=== PATIENT | female | born 1970 | race Hispanic/Latino ===

== ENCOUNTER 2018-10-14 06:26 | Day surgery (SDC) | payer BC ==
[2018-10-11 13:17] LABS: Absolute Lymphocytes (CBC) 1.7 K/uL (0.7-4.9); Basophils % 0.6 % (0-1.3); Eosinophils % 1.3 % (0-4.4); Hematocrit 39.9 % (36.0-45.0); Lymphocytes % 20.6 % (15.3-44.8); MPV 8.6 fL (7.6-11.3); Monocytes % 7.8 % (3.3-12.3); RBC Red Blood Cell Count 4.28 M/uL (3.86-4.86)
[2018-10-11 13:24] LABS: Urine Appearance CLOUDY; Urine Bilirubin NEGATIVE (NEG); Urine Blood 3+ (NEG); Urine Color YELLOW; Urine Glucose NEGATIVE (NEG); Urine Protein NEGATIVE (NEG)
[2018-10-11 13:28] LABS: Urine Microscopic Reflex ORDER UMIC
[2018-10-11 13:39] LABS: Urine RBC <5 /HPF (NONE SEEN)
[2018-10-11 13:40] LABS: Urine Bacteria >50 /HPF (<20); Urine Culture Reflex Order NOT NEEDED; Urine Mucus LIGHT /HPF (NONE SEEN)
[2018-10-14 06:44] LABS: Specific Gravity 1.025 (1.005-1.030)
[2018-10-14] MEDS ORDERED: SCOPOLAMINE HYDROBROMIDE PATCH TD ONE (06:49)
[2018-10-14] MEDS ORDERED: Ringers Lactate 1,000 ML IV ONE ×3 (06:49→12:34)
[2018-10-14] MEDS ORDERED: PROPOFOL 200 MG/20 ML VIAL IV ONE (07:16)
[2018-10-14] MEDS ORDERED: FENTANYL CITR 250 MCG/5 ML ONE (07:17)
[2018-10-14] MEDS ORDERED: ROCURONIUM 50 MG/5 ML VIAL IV ONE (07:17)
[2018-10-14] MEDS ORDERED: LIDOCAINE 2% MPF 5 ML VIAL ONE (07:17)
[2018-10-14] MEDS ORDERED: MIDAZOLAM HCL 2 MG/2 ML INJ ONE (07:17)
[2018-10-14] MEDS ORDERED: DEXAMETHASONE 10 MG/ML VIAL ONE (07:17)
[2018-10-14] MEDS ORDERED: ONDANSETRON 4 MG/2 ML VIAL ONE (07:24)
[2018-10-14] MEDS: CEFAZOLIN/SWI 2gm 2 GM/20 ML SYR ONE ×2 (07:50→08:00)
[2018-10-14] MEDS ORDERED: GLYCOPYRROLATE 0.2 MG/ML SYR ONE (08:23)
[2018-10-14] MEDS ORDERED: KETOROLAC 30 MG/ML INJ ONE (10:17)
[2018-10-14] MEDS ORDERED: MEPERIDINE HCL 50 MG/ML AMP ONE (12:06)
[2018-10-14] MEDS ORDERED: PROMETHAZINE 25 MG/ML VIAL ONE (12:09)
[2018-10-14] MEDS ORDERED: METOCLOPRAMIDE 10 MG/2mL INJ ONE (12:45)
[2018-10-14] MEDS ORDERED: HYDROCODONE/APAP 5/325 MG TAB ONE (14:23)
--- NOTE | 2018-10-14 21:42 | OP ---
Date of Procedure: 10/14/2018 Surgeon: Sue Champion MD Hospital Insurance Representative: [employer]. Preoperative Diagnoses: Right lower quadrant pain, deep dyspareunia, excessive periods with history of menorrhagia and now perimenopausal bleeding. The patient with mild stress incontinence, urge inco ntinence, and uterine prolapse, stage 1. Postoperative Diagnoses: Right lower quadrant pain, deep dyspareunia, excessive periods with history of menorrhagia and now perimenopausal bleeding. The patient with mild stress incontinence, urge inc ontinence, and uterine prolapse, stage 1. Adhesions of the omentum and the sigmoid colon to the ante rior abdominal wall and a small ventral hernia in the area of her prior scar in the lower abdominal a luis at the site of her oophorectomy scar. Procedures Performed: Total laparoscopic hysterectomy, bilateral salpingectomy, left oophorectomy, e xtensive lysis of adhesions, uterosacral ligament suspension, colpopexy, cystoscopy. Anesthesia: General endotracheal. Specimens: Uterus, left ovary, left tube, and proximal right tube. Estimated Blood Loss: Minimal. Urine Output: 300. Complications: No complications. Drains: No drains. Condition: The patient's condition is stable. Findings: 1.POP-Q with point C at -4. Uterus anteflexed, enlarged, slightly deviated to the right. 2.Decreased mobility. No adnexal masses. 3.Intra-abdominally, ventral hernia in the lower anterior abdominal wall where the adhesions were pr esent above the level of the bladder. There was decreased mobility of the entire uterus. No evidenc e of any endometriosis. The right ovary was absent. The distal part of the right tube was also ila mahnaz. The proximal tube was left and this was taken as a specimen along with the uterus. 4.Both ureters were well visualized and patent at the end of the procedure. Her bladder appeared to have significantly decreased capacity as found on cystoscopy when it was distended. Description Of Procedure: After informed consent was verified, the patient was taken back to OR, sayra semaj in supine fashion on the operating table, and 2 g of Ancef were given. She had a rash to penicil manuel, but she tolerated the Ancef well. She was placed in a dorsal lithotomy position after general a nesthesia was given. Pelvic exam performed and as above. Abdomen, vulva, vagina, and perineum were prepped and draped in a sterile fashion. Sebastian was placed to drain the bladder and attached the cyst o tubing to an LR bag, emptied 300, and large VCare was fixed in place. This area was draped. A 1 cm supraumbilical incision was made with a scalpel in a semilunar fashion to top of the umbilicus . Fascia was incised, tagged on both sides. Peritoneum entered bluntly. S retractor was placed. H asson introduced and peritoneal cavity insufflated. Site of entry checked and unremarkable. Upper a bdominal surface is unremarkable as well. The patient was placed in Trendelenburg and the adhesions were seen in the anterior abdominal wall starting just below the level of the umbilicus all the way d own to the level of the bladder mostly onto the left side. So, I was able to place a 5 mm left lower quadrant port with the help of the LigaSure and sharp dissection with scissors. The omental adhesio ns were taken down. Then, the sigmoid colon was visualized. The sigmoid and the epiploica were adhe red to the anterior abdominal wall. However, this appeared to be through a fascial defect in the low er abdominal wall. Once these were dissected with push-spread technique, window was made and I was a ble to dissect this down and taken it down with the help of the LigaSure and the hernia site could be visualized. It was in the suprapubic area where I had to put my 10 mm trocar, so I decided that if the closure has to be done for the 10 mm, it would not be optimal due to the presence of the hernia a nd this could increase the port site postop herniation, so the 10 mm port was planned to be placed in the left lower quadrant. So, the 5 was extended to a 10. A 5 mm suprapubic and right lower quadran t ports were placed under direct vision and the surgery was started. An 8 mm port was placed. However, due to the difficulty of inserting the CT-1 needle through this, i t was changed to a 10 later on while suturing. Thorough inspection was done. No evidence of any endometriosis. Findings as above. LigaSure was sp more. The broad ligament was opened up between the round ligament and the infundibulopelvic ligament. The IP was isolated. Posterior peritoneum was also incised. Then, the mesosalpinx tube were remov ed, utero-ovarian ligament was taken down, round ligament was taken down anteriorly, and anterior lay er of the broad ligament was opened up and this peritoneum dissected all the way to the opposite side of the patient raising a bladder flap. Then, posteriorly, peritoneum taken down to the left uterosa cral ligament. Broad ligament was taken down and vessels were skeletonized. After doing the similar procedure, opening up the retroperitoneum on the right side, the mesosalpinx was taken down. The ro und ligament was taken down. Then, the anterior broad ligament was connected to finish the bladder f lap and posteriorly, the peritoneum was taken down all the way to the right uterosacral insertion and the broad ligament dissected to skeletonize the vessels. Once this was done, the anterior bladder f lap was visualized. The upper border of the bladder was well visualized. Vesicovaginal space was en tered with the help of the monopolar hook blade and then dissection was performed pushing down the bl adder on the anterior wall of the vagina. Then, the VCare cup was well exposed, windows were made on the medial aspects of both uterine vessels. Bipolar basket tip was used to cauterize and then the L igaSure to take the uterine artery and vein down, the anterior branch as well. Then, the cardinal li gaments were taken down first on the right side then on the left side. Circumferential colpotomy wit h a monopolar hook blade was performed and the uterus was detached and the specimen held on the VCare while I dissected the ovary on the infundibulopelvic ligament and took it down with the LigaSure. A ll the specimens were retrieved through the vagina. Nasal suction cannula was placed in place of the VCare cup for occlusion during closure. Thorough irrigation and suction of the posterior vaginal wa ll were done and the posterior vaginal wall at 7 o'clock position had to be cauterized with the help of the medium tip bipolar. There was excellent hemostasis. Then extracorporal sutures were placed. Two simple angle stitches at either ends of the vaginal cuff and 3 [id number] in the middle, a ll interrupted. Then, for the uterosacral suspension, cleaned up the anterior vaginal wall about 3 c m. Then, both ureters were visualized from the pelvic brim to the ureteric tunnel and there was no a natomical distortion. After visualizing and pulling up on the area of the attachment of the uterosac ral and after the closure of the cuff, I was able to isolate the uterosacrals and was able to plicate them with the help of [address]-1 needle. Two sutures were taken on the left side from lateral to medial avoiding the ureter and then fixating it to the posterior rectovaginal fascia and the anter ior vaginal wall. This suture was then tied in a similar fashion on the right side, went through the distal half of the uterosacral, plicated, and attached to the vaginal cuff and tied down. Next, cys toscopy was performed with a 17-Polish sheath, 30-degree lens and normal saline. Both ureteric orifi rudolph were patent and there was strong jets of urine from them probably. The entire bladder was well v isualized. No evidence of any tumors, diverticula. There was metaplasia seen in the trigonal area, but no other anatomical distortions. Bladder was drained. The vagina was cleaned up. Bulb was ila mahnaz. Sebastian was removed. We went back up and after thorough irrigation and suction were performed, the 10 mm left lower quadra nt port was closed with the help of a Thiago-Lupis closure system. A 0 Vicryl tie was used to bobo se this. A simple stitch was placed and tied down. There was excellent closure of the incision and this was left alone. Then, the trocars were all removed. Fascia at the umbilicus was closed after d esufflation with the tag sutures tied to each other at both ends and then simple 0 Vicryl stitch in t he subcutaneous tissue and 4-0 Monocryl in the umbilicus and 4-0 Vicryl interrupted in all other inci sions. Sebastian was left out. Instrument, needle, and sponge counts were done and were correct at the end of the case. The patient tolerated the procedure well. EBL was minimal. SAUD/JOSE LUIS Voice ID: [id number] Report ID: [id number]
== END 2018-10-14 15:18 | disposition home or self-care (01) ==
LOC: OR 06:26
PROVIDERS: ATTEND Obstetrics & Gynecology
PROC: 0UT14ZZ Resection of Left Ovary, Percutaneous Endoscopic Approach (ICD-10-PCS; 2018-10-14)
PROC: 0UT74ZZ Resection of Bilateral Fallopian Tubes, Percutaneous Endoscopic Approach (ICD-10-PCS; 2018-10-14)
PROC: 0USG7ZZ Reposition Vagina, Via Natural or Artificial Opening (ICD-10-PCS; 2018-10-14)
PROC: 0UT94ZZ Resection of Uterus, Percutaneous Endoscopic Approach (ICD-10-PCS; principal; 2018-10-14 07:30)
DX: N94.12 Deep dyspareunia (principal); N92.1 Excessive and frequent menstruation with irregular cycle; N39.3 Stress incontinence (female) (male); N39.41 Urge incontinence; N81.2 Incomplete uterovaginal prolapse; N88.8 Other specified noninflammatory disorders of cervix uteri; D25.9 Leiomyoma of uterus, unspecified; N83.02 Follicular cyst of left ovary; K66.0 Peritoneal adhesions (postprocedural) (postinfection); K43.9 Ventral hernia without obstruction or gangrene; Z90.721 Acquired absence of ovaries, unilateral
CPT/HCPCS: 36415; 81003; 81015; 81025; 85025; 86850; 86900; 86901; 88305; 88307; J0690; J1100; J2175; J2250; J2405; J2550; J2704; J2765; J3010

== ENCOUNTER 2019-09-06 10:46 | Observation (INO) | payer BC ==
--- OUTSIDE RECORDS SUMMARY | 2019-09-06 11:43 | XMS REPORT ---
:1970 Author Organization [facility] t Address [address] [place] [address] Care Team Providers Name Role Phone Lakesha FRANCO, Christopher Johnston Attending Clinician Problems This patient has no known problems. Allergies, Adverse Reactions, Alerts This patient has no known allergies or adverse reactions. Medications This patient has no known medications. Procedures This patient has no known procedures. Encounters Start End Encounter Admission Attending Care Care Encounter Source Date/Time Date/Time Type Type Clinicians Facility Department ID 2019-08-26 2019-08-26 [facility] [id number] 11:30:00 23:59:00 Encounter Christopher Pritchard [id number] [place] [id number] [place] [id number] Results This patient has no known results.
--- OUTSIDE RECORDS SUMMARY | 2019-09-06 11:43 | XMS REPORT | Summary of Care ---
:1970 Author Organization [facility] Address [address] [place] [address] Care Team Providers Name Role Phone Negin Primary Care Provider Reason for Visit Radiology Services (Routine) Status Reason Specialty Diagnoses / Referred By Referred To Procedures Contact Contact New Request Diagnostic Diagnoses Right hip pain Lakesha, Radiology Procedures XR HIPS 2 VW RIGHT XR HIP 1 VW RIGHT Christopher Johnston MD [address] [facility] [id number] [place] [id number] Encounter Details Date Type Department Care Team Description 08/26/2019 Hospital Encounter [facility] Marlo Crowder Arrived [facility] [address] [facility] [address] [facility] [place] [address] [id number] [place] [id number] Allergies Active Allergy Reactions Severity Noted Date Comments Morphine Other - See comments 12/27/2016 Burning sensation Penicillins Hives 05/26/2007 documented as of this encounter (statuses as of 08/27/2019) Medications Medication Sig Dispensed Refills Start Date End Date Status ciprofloxacin HCl 500 Take 1 tablet by 20 tablet 0 12/27/2016 Active mg tablet mouth 2 (two) times daily. ondansetron 4 mg Take 1 tablet by 20 tablet 0 12/27/2016 Active disintegrating tablet mouth every 4 (four) hours as needed for Nausea and Vomiting (N/V). documented as of this encounter (statuses as of 08/27/2019) Active Problems Not on filedocumented as of this encounter (statuses as of 08/27/2019) Social History Tobacco Use Types Packs/Day Years Used Date Never Assessed Sex Assigned at Date Recorded Not on file Job Start Date Occupation Industry Not on file Not on file Not on file Travel History Travel Start Travel End No recent travel history available. COVID-19 Exposure Response Date Recorded In the last month, have you been in contact with No / Unsure 08/26/2019 11:38 AM CDT someone who was confirmed or suspected to have Coronavirus / COVID-19? documented as of this encounter Last Filed Vital Signs Not on filedocumented in this encounter Plan of Treatment Health Maintenance Due Date Last Done Comments DTaP,Tdap,and Td Vaccines (1 - 1980 Tdap) PAP SMEAR 08/07/2007 08/06/2004 Breast Cancer Screening 2009 (MAMMOGRAM) COLONOSCOPY 2019 Zoster Recombinant Vaccine 2019 (SHINGRIX) (1 of 2) INFLUENZA VACCINE (Season Ended) 2019 PNEUMOCOCCAL 0-64 YEARS COMBINED Aged Out No longer eligible based on SERIES patient's age to complete this topic documented as of this encounter Procedures Procedure Name Priority Date/Time Associated Diagnosis Comme nts XR HIPS 2 VW RIGHT Routine 08/26/2019 11:51 AM Right hip pain Results for this CDT procedure are i n the results section. documented in this encounter Results XR HIPS 2 VW RIGHT (08/26/2019 11:51 AM CDT) Specimen Impressions Performed At PACS/VR/DOSE No acute bony abnormality. Mild hip osteoarthrosis. Preliminary Report Dictated by Resident: Thang Dhillon I, Raya Rey MD., have reviewed this study an d agree with the above report. Narrative Performed At This result has an attachment that is no t available. EXAM: XR HIPS 2 VW RIGHT PACS/VR/DOSE HISTORY: PAIN COMPARISON: None FINDINGS: Radiographs of the right hips demonstrate no acute fra cture or dislocation. Subchondral sclerosis and mild joint space narrowing o f the hip joint is seen. No soft tissue abnormality is identified. Procedure Note [facility], Radiant Results Inft User - 05/08/ 2020 12:30 PM CDT EXAM: XR HIPS 2 VW RIGHT HISTORY: PAIN COMPARISON: None FINDINGS: Radiographs of the right hips demonstrat e no acute fracture or dislocation. Subchondral sclerosis and mild joint spa ce narrowing of the hip joint is seen. No soft tissue abnormality is iden tified. IMPRESSION No acute bony abnormality. Mild hip osteoarthrosis. Preliminary Report Dictated by Resident: Thang Dhillon I, Raya Rey MD., have reviewed this study and agree with the above report. Performing Organization Address City/State/[place] Phone Number PACS/VR/DOSE documented in this encounter Visit Diagnoses Diagnosis Right hip pain Pain in joint, pelvic region and thigh documented in this encounter Insurance Payer Benefit Plan Subscriber ID Effective Dates Phone Address Type / Group [facility] [id number] 2018-Khari [phone] [address] P[place] - OUT OF t [id number] [place] [address] (Work) documented as of this encounter
[2019-09-06] MEDS ORDERED: HYDROMORPHONE HCL 1 MG/ML INJ IV PRN (13:35)
[2019-09-06 13:58] LABS: Absolute Lymphocytes (CBC) 2.3 K/uL (0.7-4.9); Basophils % 0.7 % (0-1.3); Hematocrit 40.3 % (36.0-45.0); Lymphocytes % 23.6 % (15.3-44.8); MPV 8.7 fL (7.6-11.3); RBC Red Blood Cell Count 4.35 M/uL (3.86-4.86)
[2019-09-06] MEDS ORDERED: POLYETHYL GLY 3350 17 GM/DOSE PO PRN (14:00)
[2019-09-06] MEDS ORDERED: ACETAMINOPHEN 325 MG TABLET PO PRN (14:00)
[2019-09-06] MEDS ORDERED: LOPERAMIDE HCL 2 MG CAPSULE PO PRN (14:00)
[2019-09-06] MEDS ORDERED: NACHLORIDE 0.45% 1,000 ML IV SCH (14:00)
[2019-09-06] MEDS ORDERED: DIPHENHYDRAMINE 25 MG TAB/CAP PO PRN (14:00)
[2019-09-06] MEDS ORDERED: ONDANSETRON 4 MG (ODT) TAB PO PRN (14:00)
[2019-09-06] MEDS ORDERED: ONDANSETRON 4 MG/2 ML VIAL IV PRN (14:00)
[2019-09-06 14:05] LABS: Protime INR 1.08
[2019-09-06 14:07] LABS: Urine Appearance CLEAR; Urine Bilirubin NEGATIVE (NEG); Urine Blood NEGATIVE (NEG); Urine Color YELLOW; Urine Glucose NEGATIVE (NEG); Urine Protein NEGATIVE (NEG); Urine Urobilinogen 0.2 mg/dL (0.2-1.0); Urine pH 6.5 (5.0-7.0)
[2019-09-06 14:32] VITALS: BMI 32.4
[2019-09-06 14:32] LABS: Urine Microscopic Reflex NO UMIC
[2019-09-06 14:41] LABS: ALT/SGPT 20 U/L (12-78); AST/SGOT 11 U/L (15-37); Albumin 3.9 g/dL (3.4-5.0); Alkaline Phosphatase 111 U/L (45-117); BUN Blood Urea Nitrogen 12 mg/dL (7-18); Bicarbonate 30 mmol/L (21-32); Bilirubin Direct 0.1 mg/dL (0-0.2); Bilirubin Total 0.4 mg/dL (0.2-1.0); Glucose Level 97 mg/dL (74-106); Magnesium 2.3 mg/dL (1.8-2.4); Phosphorus 3.7 mg/dL (2.5-4.9); Potassium 4.4 mmol/L (3.5-5.1); Protein, Total 7.8 g/dL (6.4-8.2); Sodium Level 141 mmol/L (136-145)
[2019-09-06 14:58] VITALS: O2SAT 98
[2019-09-06] MEDS ORDERED: TRAMADOL HCL 50 MG TAB PO PRN (16:31)
--- NOTE | 2019-09-06 17:35 | RAD REPORT ---
EXAM DESCRIPTION: RAD - Chest Pa And Lat (2 Views) - 09/06/2019 5:26 pm CLINICAL HISTORY: abdomen/flank pain Chest pain. COMPARISON: ABDOMEN ACUTE SERIES dated 04/20/2009 FINDINGS: The lungs are clear. The heart is normal in size. No displaced fractures. IMPRESSION: No acute or concerning finding suspected.
--- NOTE | 2019-09-06 17:41 | RAD REPORT ---
EXAM DESCRIPTION: CTAbdomen Pelvis W Contrast - 09/06/2019 4:46 pm CLINICAL HISTORY: Abdominal pain. abdomen/flank pain COMPARISON: Abdomen Pelvis W Contrast dated 02/23/2017; Abdomen Pelvis W Contrast dated 12/16/2015 TECHNIQUE: Biphasic CT imaging of the abdomen and pelvis was performed with 100 ml non-ionic IV cont rast. All CT scans are performed using dose optimization technique as appropriate and may include automated exposure control or mA/KV adjustment according to patient size. FINDINGS: The lung bases are clear.Postsurgical changes involve the stomach with a small hiatal ananya ia. The liver, spleen, pancreas, adrenal glands and kidneys are within normal limits. Cholecystectomy cli ps. No bowel obstruction, free air, free fluid or abscess. The appendix is normal. No evidence of signi ficant lymphadenopathy. No suspicious bony findings. IMPRESSION: No acute intra-abdominal or pelvic finding.
[2019-09-06] MEDS ORDERED: PARoxetine HCL 10 MG TAB PO SCH (21:00)
[2019-09-06] MEDS ORDERED: MIRTAZAPINE 15 MG TAB PO SCH (21:00)
[2019-09-06] MEDS ORDERED: HOME MED 1 EA UNK (Mirtazapine [Mirtazapine] 7.5 MG) PO SCH (21:00)
[2019-09-07 04:17] LABS: Absolute Lymphocytes (CBC) 1.7 K/uL (0.7-4.9); Basophils % 0.4 % (0-1.3); Hematocrit 38.2 % (36.0-45.0); Lymphocytes % 14.7 % (15.3-44.8); MPV 8.9 fL (7.6-11.3); RBC Red Blood Cell Count 4.17 M/uL (3.86-4.86)
[2019-09-07 04:30] LABS: BUN Blood Urea Nitrogen 11 mg/dL (7-18); Bicarbonate 31 mmol/L (21-32); Glucose Level 113 mg/dL (74-106); Magnesium 2.3 mg/dL (1.8-2.4); Potassium 4.9 mmol/L (3.5-5.1); Sodium Level 142 mmol/L (136-145)
[2019-09-07] MEDS ORDERED: ENOXAPARIN 40 MG/0.4 ML SQ SCH (09:00)
[2019-09-07 09:08] VITALS: BP 102/50; TEMP 98.2
--- NOTE | 2019-09-07 17:56 | P.DS ---
Admission Date: 09/06/19 Discharge Date: 09/07/19 Disposition: ROUTINE DISCHARGE Discharge Condition: [facility] Hospital Course: MARY JEAN-BAPTISTE HAS PAIN R LOWER ABDOMEN. HER CT SCAN ABDOMEN AND PELVIS IS NORMAL. MRI DONE AT [place] WAS NORMAL FOR SPINE. SHE NEEDS NOW TO FU WITH GI AND EDUCATION NURSE DOCTORS. SO FAR WE HAVE NOT FOUND AND ETIOLOGY FOR THIS PAIN. Vital Signs/Physical Exam: Temp Pulse Resp BP Pulse Ox 98.2 F 50 18 102/50 L 98 09/07/19 08:00 09/07/19 08:00 09/07/19 08:00 09/07/19 08:00 09/07/19 08:00 Laboratory Data at Discharge: WBC 11.3 K/uL (4.3-10.9) H D 09/07/19 03:56 Hgb 12.6 g/dL (12.0-15.0) 09/07/19 03:56 Hct 38.2 % (36.0-45.0) 09/07/19 03:56 Plt Count 319 K/uL (152-406) 09/07/19 03:56 PT 12.7 SECONDS (9.5-12.5) H 09/06/19 13:46 INR 1.08 09/06/19 13:46 APTT 37.4 SECONDS (24.3-36.9) H 09/06/19 13:46 Sodium 142 mmol/L (136-145) 09/07/19 03:56 Potassium 4.9 mmol/L (3.5-5.1) 09/07/19 03:56 BUN 11 mg/dL (7-18) 09/07/19 03:56 Creatinine 0.62 mg/dL (0.55-1.3) 09/07/19 03:56 Glucose 113 mg/dL (74-106) H 09/07/19 03:56 Phosphorus 3.7 mg/dL (2.5-4.9) 09/06/19 13:46 Magnesium 2.3 mg/dL (1.8-2.4) 09/07/19 03:56 Total Bilirubin 0.4 mg/dL (0.2-1.0) 09/06/19 13:46 AST 11 U/L (15-37) L 09/06/19 13:46 ALT 20 U/L (12-78) 09/06/19 13:46 Alkaline Phosphatase 111 U/L (45-117) 09/06/19 13:46 Home Medications: Gabapentin 100 mg PO TID 09/06/19 Mirtazapine 7.5 mg PO BEDTIME 09/06/19 PARoxetine HCL [Paxil*] 1 tab PO BEDTIME 09/06/19 Patient Discharge Instructions: SEE DR. 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 Followup: Toribio Kam MD [Primary Care Provider] - If your Symptoms Worsen ( ) Ramone Sales MD [ASSOCIATE-ACTIVE - CAN ADMIT] - 1 Week ( cigarette making examiner- call to schedule an appointment )
== END 2019-09-07 09:25 | disposition home or self-care (01) ==
LOC: 4TH 11:11
PROVIDERS: ADMIT Internal Medicine; ATTEND Internal Medicine
DX: R10.9 Unspecified abdominal pain (principal); F41.9 Anxiety disorder, unspecified; R53.83 Other fatigue
CPT/HCPCS: 87088; 85025 ×2; 87086; 80048 ×2; 36415; 83735 ×2; 84100; 85610; 80076; 85730; 84443; 81003; 82607; 82306; 74177; 71046; Q9967; G0379; J1170; J2405; G0378 ×3; J1650

== ENCOUNTER 2024-02-01 15:04 | Observation (INO) | payer OTHER ==
--- OUTSIDE RECORDS SUMMARY | 2024-02-01 15:08 | XMS REPORT | Continuity of Care Document ---
Author Name Unknown Address [address] [facility] [address] [place] [address] [facility] thconnect Address [address] [facility] [place] [address] Care Team Providers Care Street Supervisor Name Role Phone JORGE ALBERTO KANG Primary Care Physician Unavailprema bliss [email or web address] Attending Clinician UnavailDR JORGE ALBERTO Belcher Attending Clinician Unavailprema bliss [phone] Attending Clinician Unavailable [id number] Attending Clinician Unavailable DR DANNY KRAUS Attending Clinician Unavailable [id number] Attending Clinician Unavailable ULYSSES EDMONDS Attending Clinician UnavailRobert Mcgrath Attending Clinician Unavailable Robert Junior Attending Clinician Unavailable SHREE HANSON Attending Clinician UnavailShree Swanson MD Attending Clinician [email or web address]_S Admitting Clinician UnavailDR JORGE ALBERTO Belcher Admitting Clinician UnavailDR DANNY Duff Admitting Clinician Unavailable Robert Junior Admitting Clinician Unavailable SHREE HANSON Admitting Clinician Unavailab tarango Payers Payer Name Policy Type Policy Number Effective Date Expirati on Date Source 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 SHIELD - OP [id number] 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 SHIELD - OP [id number] [facility] [id number] 2018 00:00:00 Allergies, Adverse Reactions, Alerts Allergy Name Allergy Type Status Severity Reaction(s) Onset Date Inactive Date Treating Clinician Comments Source MORPHINE DRUG INGREDI Active Other-Cmnt 12-27 00:00: 00 [facility] PENICILL INS Drug Class Active Hives 05-26 00:00: 00 [facility] penicill in Drug Active 72018 [facility] morphine Drug Active Burning [facility] penicill in Drug Active 74860 [facility] morphine Drug Active Burning [facility] penicill in Drug Active 48705 [facility] morphine Drug Active Burning [facility] penicill in Drug Active 00299 [facility] morphine Drug Active Burning [facility] penicill in Drug Active 44071 [facility] morphine Drug Active Burning [facility] penicill in Drug Active 20863 [facility] morphine Drug Active Burning [facility] penicill in Drug Active 19590 [facility] morphine Drug Active Burning [facility] No Known Drug Allergie s MA Active UNKNOWN [facility] Vital Signs Vital Name Observation Time Observation Value Comments S ource Height/Length Measured 2021-05-07 12:51:02 160 cm Weight Dosing 2021-05-07 12:51:02 82.37 kg Height/Length Measured 2020-01-30 14:48:11 Weight Dosing 2020-01-30 14:48:11 Encounters Start Date/Time End Date/Time Encounter Type Admission Type Attending Clinicians Care Facility Care Department Encounter ID Source 2021-09-12 09:01:29 Outpatient ELCAMPO ELCAMPO [id number] [facility] 2023-02-14 00:00:00 2023-02-14 00:00:00 Outpatient GC_[email or web address] diyala_S PRIV PRIV [id number] [facility] 2023-02-13 00:00:00 2023-02-13 00:00:00 Outpatient GC_GCBZW_Ka diyala_S PRIV PRIV [id number] [facility] 2021-09-12 09:37:00 2021-09-12 12:10:00 Outpatient JORGE ALBERTO JUDGE [id number] [facility] [id number] [facility] 2021-09-12 11:03:00 2021-09-12 11:03:00 Outpatient JORGE ALBERTO MARC [id number] [facility] [id number] [facility] 2021-09-12 09:07:00 2021-09-12 09:07:00 Outpatient N DANNY KRAUS [id number] [facility] [id number] [facility] 2020-04-17 10:00:00 2020-04-17 10:00:00 Outpatient R [facility] [id number] [facility] 2020-04-17 10:00:00 2020-04-17 10:00:00 Outpatient R ULYSSES EDMONDS [facility] [id number] [facility] 2020-01-30 13:54:00 2020-01-30 21:29:00 Outpatient 3 Robert Junior Mark [facility] [id number] [facility] 2020-01-30 13:54:00 2020-01-30 13:54:00 Outpatient 3 Robert Junior Mark [facility] [id number] [facility] 2019-08-26 11:38:23 2019-08-26 23:59:00 Outpatient R SHREE HANSON [facility] [id number] [facility] 2019-08-26 11:30:00 2019-08-26 23:59:00 Hospital Encounter Shree Hanson [facility] [id number]
[2024-02-01 15:23] VITALS: BMI 36.2
[2024-02-01] MEDS ORDERED: LOPERAMIDE HCL 2 MG CAPSULE PO PRN (16:05)
[2024-02-01] MEDS ORDERED: POLYETHYL GLY 3350 17 GM/DOSE PO PRN (16:06)
[2024-02-01] MEDS ORDERED: ONDANSETRON 4 MG/2 ML VIAL IV PRN (16:06)
[2024-02-01] MEDS ORDERED: HYDROMORPHONE HCL 1 MG/ML INJ IV PRN (16:09)
[2024-02-01 17:00] LABS: Absolute Eosinophils 0.1 K/uL (0-0.5); Absolute Lymphocytes (CBC) 1.8 K/uL (0.7-4.9); Absolute Monocytes 0.8 K/uL (0.1-1.3); Absolute Neutrophil 6.2 K/uL (1.8-8.0); Basophils % 0.4 % (0-1.3); Eosinophils % 1.4 % (0-4.4); Hematocrit 40.9 % (36.0-45.0); Hemoglobin 13.7 g/dL (12.0-15.0); Lymphocytes % 19.7 % (15.3-44.8); MCHC 33.4 g/dL (32.0-36.0); MPV 8.2 fL (7.6-11.3); Monocytes % 8.5 % (3.3-12.3); Nucleated Red Blood Cells % 0.1 % (0-0); Platelets 300 thou/uL (152-406)
[2024-02-01] MEDS: NACHLORIDE 0.45% 1,000 ML IV SCH (17:07)
[2024-02-01 17:09] LABS: PT Prothrombin Time 11.9 SECONDS (9.4-12.5); PTT, Activated Partial Thromb 43.5 SECONDS (24.3-36.9); Protime INR 1.06
[2024-02-01] MEDS: METRONIDAZOLE 500mg IVPB 500 MG/100 ML BAG IV SCH (17:12)
[2024-02-01] MEDS: Ciprofloxacin 200mg IV 400 MG/200 ML IV.SOLN. IV SCH (18:06)
[2024-02-01 18:14] LABS: ALT/SGPT 22 U/L (13-56); AST/SGOT 14 U/L (15-37); Albumin 3.9 g/dL (3.4-5.0); Albumin/Globulin Ratio 1.1 (1.1-1.8); Alkaline Phosphatase 90 U/L (45-117); Anion Gap 6.1 mEq/L (5.0-15.0); BUN Blood Urea Nitrogen 16 mg/dL (7-18); Bicarbonate 28 mEq/L (21-32); Bilirubin Direct < 0.2 mg/dL (0-0.2); Bilirubin Indirect, Calculated 0.2 mg/dL (0.2-0.8); Bilirubin Total 0.4 mg/dL (0.2-1.0); Globulin 3.4 g/dL (2.3-3.5); Glomerular Filtration Rate 99 ml/min (=/>90); Glucose Level 75 mg/dL (74-106); Magnesium 2.2 mg/dL (1.6-2.4); Phosphorus 3.2 mg/dL (2.5-4.9); Potassium 4.1 mEq/L (3.5-5.1); Protein, Total 7.3 g/dL (6.4-8.2); Sodium Level 141 mEq/L (136-145)
[2024-02-01 18:27] LABS: Specific Gravity < 1.005 (1.005-1.030); Urine Bilirubin NEGATIVE (Negative); Urine Blood Negative (Negative); Urine Clarity Clear (Clear); Urine Color Colorless (Yellow); Urine Glucose NEGATIVE (Negative); Urine Ketones NEGATIVE (Negative); Urine Microscopic Reflex YN NO UMIC; Urine Nitrite NEGATIVE (Negative); Urine Protein NEGATIVE (Negative); Urine Urobilinogen Normal (Normal); Urine pH 6.5 (5.0-7.0)
[2024-02-01 19:19] LABS: MA/CREAT RATIO ND (< 30.0); UR CREAT < 18.0 mg/dL (20-320); UR MICROALBUMIN < 0.5 mg/dL (< 1.9)
--- NOTE | 2024-02-01 21:06 | RAD REPORT ---
EXAMINATION: Abdomen Pelvis Wo Contrast CLINICAL INDICATION: Female, 53 years old. LLQ abd pain, L rib pain TECHNIQUE: CT abdomen and pelvis was performed, without IV contrast, as per department protocol. Axia l, sagittal and coronal reconstructions were obtained. One or more of the following dose reduction techniques were used: Automated exposure control, adjustment of the mA and kV according to the patien t size, and iterative reconstruction. Unless otherwise specified, incidental findings do not require dedicated imaging follow-up. COMPARISON: 09/06/2019 FINDINGS: The lack of intravenous contrast limits the sensitivity of this exam for evaluation of solid visceral organs, vascular structures, and retroperitoneum. LOWER CHEST: The visualized lung bases are clear. LIVER: Normal in size and contour. No focal lesion. BILIARY SYSTEM: Status post cholecystectomy. SPLEEN: Normal size. No focal lesion. PANCREAS: No mass, ductal dilation, or rina-pancreatic fluid. ADRENALS: Normal; no mass. KIDNEYS AND URETERS: Normal size and contour. No hydronephrosis. URINARY BLADDER: Normal contour. GASTROINTESTINAL TRACT: Sequelae of gastric bypass. No evidence of bowel obstruction, significant sameera e fluid, free air or abscess. APPENDIX: Normal appendix. LYMPH NODES: No lymphadenopathy. MUSCULOSKELETAL: Mildly displaced lateral left 10th rib fracture. ADDITIONAL FINDINGS: None. IMPRESSION: Mildly displaced left lateral 10th rib fracture. No acute intra-abdominal process, within limits of absence of IV contrast.
[2024-02-01 21:12] VITALS: O2SAT 97
[2024-02-01] MEDS: ACETAMINOPHEN 325 MG TABLET PO PRN (21:40)
[2024-02-01] MEDS: DIPHENHYDRAMINE 25 MG TAB/CAP PO PRN (21:43)
[2024-02-02 09:12] VITALS: BP 129/66; TEMP 97
[2024-02-02] MEDS: ENOXAPARIN 40 MG/0.4 ML SQ SCH (09:41)
--- NOTE | 2024-02-02 12:45 | P.DS ---
Admission Date: 02/01/24 Discharge Date: 02/02/24 Disposition: ROUTINE DISCHARGE Discharge Condition: [facility] Hospital Course: JENNYFER HAS L SIDE RIB PAIN. LATER SHE SAYS SHE DID FALL FEEDING THE HORSE AND LIFTING 50 LB BAG. SHE HAS A BROKE RIB L SIDE AND IS STABLE TO GO HOME. SHE WILL NOT LIFT ANY WEIGHT MORE THAN 10 LBS. Vital Signs/Physical Exam: Temp Pulse Resp BP Pulse Ox 97 F 63 16 129/66 100 02/02/24 08:00 02/02/24 08:00 02/02/24 08:00 02/02/24 08:00 02/02/24 08:00 Laboratory Data at Discharge: WBC 8.90 thou/uL (4.3-10.9) 02/01/24 16:45 Hgb 13.7 g/dL (12.0-15.0) 02/01/24 16:45 Hct 40.9 % (36.0-45.0) 02/01/24 16:45 Plt Count 300 thou/uL (152-406) 02/01/24 16:45 PT 11.9 SECONDS (9.4-12.5) 02/01/24 16:45 INR 1.06 02/01/24 16:45 APTT Cancelled 02/01/24 Unknown Sodium 141 mEq/L (136-145) 02/01/24 16:45 Potassium 4.1 mEq/L (3.5-5.1) 02/01/24 16:45 BUN 16 mg/dL (7-18) 02/01/24 16:45 Creatinine 0.72 mg/dL (0.55-1.02) 02/01/24 16:45 Glucose 75 mg/dL (74-106) 02/01/24 16:45 Phosphorus 3.2 mg/dL (2.5-4.9) 02/01/24 16:45 Magnesium 2.2 mg/dL (1.6-2.4) 02/01/24 16:45 Total Bilirubin 0.4 mg/dL (0.2-1.0) 02/01/24 16:45 AST 14 U/L (15-37) L 02/01/24 16:45 ALT 22 U/L (13-56) 02/01/24 16:45 Alkaline Phosphatase 90 U/L (45-117) 02/01/24 16:45 Home Medications: NK [No Home Meds] 02/01/24 Followup: Toribio Kam MD [Primary Care Provider] - 1-2 Weeks
== END 2024-02-02 10:21 | disposition home or self-care (01) ==
LOC: 2ND 15:04
PROVIDERS: ADMIT Internal Medicine; ATTEND Internal Medicine
DX: S22.32XA Fracture of one rib, left side, initial encounter for closed fracture (principal); R10.32 Left lower quadrant pain; K57.92 Diverticulitis of intestine, part unspecified, without perforation or abscess without bleeding; F41.9 Anxiety disorder, unspecified; W18.30XA Fall on same level, unspecified, initial encounter; Y93.89 Activity, other specified; Y92.89 Other specified places as the place of occurrence of the external cause
CPT/HCPCS: 85025; 80048; 36415; 83735; 84100; 85610; 80076; 85730; 82652; 84443; 81003; 83036; 82570; 82607; 82043; 74176; J1650; J0744 ×2; G0378; G0379; J1170

== ENCOUNTER 2024-12-01 10:26 | Observation (INO) | payer OTHER ==
--- OUTSIDE RECORDS SUMMARY | 2024-12-01 10:29 | XMS REPORT | Continuity of Care Document ---
Author Name Unknown Address [address] [place] [address] [facility] ID Address [address] [place] [address] Care Team Providers Care Slope Tender Name Role Phone JORGE ALBERTO KANG Primary Care Physician UnavailDR JORGE ALBERTO Belcher Attending Clinician Unavaila izaiah [phone] Attending Clinician Unavailable [id number] Attending Clinician Unavailable DR DANNY KRAUS Attending Clinician Unavailable [phone] Attending Clinician Unavailable ULYSSES EDMONDS Attending Clinician UnavailRobert Mcgrath Attending Clinician Unavailable Robert Junior Attending Clinician Unavailable SHREE HANSON Attending Clinician UnavailShree Swanson MD Attending Clinician DR JORGE ALBERTO KANG Admitting Clinician UnavailDR DANNY Duff Admitting Clinician Unavailable Robert Junior Admitting Clinician Unavailable SHREE HANSON Admitting Clinician Unavailab tarango Payers Payer Name Policy Type Policy Number Effective Date Expirati on Date Source 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 - OP [id number] 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 SHIELD - OP [id number] [facility] [id number] 2018 00:00:00 Allergies, Adverse Reactions, Alerts Allergy Name Allergy Type Status Severity Reaction(s) Onset Date Inactive Date Treating Clinician Comments Source MORPHINE DRUG INGREDI Active Other-Cmnt 2017-0 9-09 00:00: 00 [facility] PENICILL INS Drug Class Active Hives 2008-0 2-06 00:00: 00 [facility] penicill in Drug Active 10417 [facility] morphine Drug Active [facility] penicill in Drug Active 35457 [facility] morphine Drug Active [facility] penicill in Drug Active 71795 [facility] morphine Drug Active [facility] penicill in Drug Active 59737 [facility] morphine Drug Active [facility] penicill in Drug Active 34715 [facility] morphine Drug Active [facility] penicill in Drug Active 14913 [facility] morphine Drug Active [facility] penicill in Drug Active 06987 [facility] morphine Drug Active [facility] No Known Drug Allergie s MA Active UNKNOWN [facility] Vital Signs Vital Name Observation Time Observation Value Comments S ource Height/Length Measured 2021-05-07 12:51:02 160 cm Weight Dosing 2021-05-07 12:51:02 82.37 kg Height/Length Measured 2020-01-30 14:48:11 Weight Dosing 2020-01-30 14:48:11 Encounters Start Date/Time End Date/Time Encounter Type Admission Type Attending [facility] Facility Care Department Encounter ID Source 2021-09-12 09:01:29 [id number] [facility] 2021-09-12 09:37:00 2021-09-12 12:10:00 Outpatient JORGE ALBERTO JUDGE [id number] [facility] [id number] 2021-09-12 11:03:00 2021-09-12 11:03:00 Outpatient JORGE ALBERTO MARC [id number] [facility] [id number] [facility] 2021-09-12 09:07:00 2021-09-12 09:07:00 Outpatient DANNY FLOREZ [id number] [facility] [id number] [facility] 2020-04-17 10:00:00 2020-04-17 10:00:00 Outpatient R [facility] [id number] [facility] 2020-04-17 10:00:00 2020-04-17 10:00:00 Outpatient R ULYSSES EDMONDS [facility] [id number] [facility] 2020-01-30 13:54:00 2020-01-30 21:29:00 Outpatient 3 Robert Junior Mark [facility] [id number] [facility] 2020-01-30 13:54:00 2020-01-30 13:54:00 Outpatient 3 Robert Junior Mark [facility] [id number] [facility] 2019-08-26 11:38:23 2019-08-26 23:59:00 Outpatient R SHREE HANSON [facility] [id number] [facility] 2019-08-26 11:30:00 2019-08-26 23:59:00 Hospital Encounter Shree Hanson [facility] [id number]
--- NOTE | 2024-12-01 10:56 | RAD REPORT ---
EXAM: CT brain without contrast HISTORY: Numbness . COMPARISON: None TECHNIQUE: Multiple contiguous axial images were obtained and a CT of the brain without contrast. Sagittal and coronal reformats were performed. Automated exposure control, adjustment of the mA and/or kV according to patient size, and/or itera tive reconstruction. Unless otherwise specified, incidental findings do not require dedicated imaging follow-u FINDINGS: An intracranial bleed is not seen Ventricles are normal caliber No extra-axial fluid collection noted No significant hypodensity within the brain No fluid within the visualized sinuses or mastoids noted. IMPRESSION: No acute intracranial abnormality noted. If the patient's symptoms persist MRI of the brain would be recommended. from the emergency room was notified at 10:46 AM December 01, 2024
[2024-12-01 10:59] LABS: Absolute Lymphocytes (CBC) 1.8 K/uL (0.7-4.9); Hematocrit 41.2 % (36.0-45.0); Hemoglobin 13.4 g/dL (12.0-15.0); MCH 29.4 pg (27.0-35.0); MCHC 32.6 g/dL (32.0-36.0); MCV 90.3 fL (80-100); MPV 8.3 fL (7.6-11.3); Nucleated RBC Absolute Count 0.0 (0-0); Nucleated Red Blood Cells % 0.0 % (0-0); RBC Red Blood Cell Count 4.56 M/uL (3.86-4.86); White Blood Count 6.00 thou/uL (4.3-10.9)
--- NOTE | 2024-12-01 11:07 | RAD REPORT ---
EXAMINATION: Neck Angio CLINICAL INDICATION: Numbness TECHNIQUE: Axial CT images were obtained from the aortic arch to the skull base after intravenous adm inistration of 100 cc Isovue-370 utilizing angiographic protocol. Multiplanar reformats, as well as 3D post-processing (maximum intensity projection images, volume rendered images and/or shaded surface rendered images) were generated and reviewed. One or more of the following dose reduction techniques were used: Automated exposure control, adjustment of the mA and/or kV according to patient size, and/or iterative reconstruction. Unless otherwise specified, incidental findings do not require dedicated imaging follow-up. COMPARISON: No prior exam. FINDINGS: The visualized aortic arch and great vessels do not demonstrate a significant abnormality Mild plaque is present within the common, internal and external carotid arteries bilaterally Hypoplastic right vertebral artery. No significant stenosis noted. A dissection is not seen. Methods for NASCET criteria: Mild stenosis, 0% to 49%; Moderate stenosis 50% to 69%; Severe stenosis, 70% to 99% IMPRESSION: No acute vascular abnormality displayed
--- NOTE | 2024-12-01 11:07 | RAD REPORT ---
EXAMINATION: CTA HEAD CLINICAL INDICATION: Numbness TECHNIQUE: Axial CT images were obtained through the head after 100 cc Isovue-370 intravenous contras t utilizing angiographic protocol with 3D post-processing (maximum intensity projection images, volume rendered images and/or shaded surface rendered images). One or more of the following dose red uction techniques were used: Automated exposure control, adjustment of the mA and/or kV according to patient size, and/or iterative reconstruction. Unless otherwise specified, incidental findings do not require dedicated imaging follow-up. COMPARISON: None FINDINGS: origin right posterior cerebral artery Distal internal carotid, basilar, anterior cerebral, middle cerebral and posterior cerebral arteries do not demonstrate a significant stenosis An aneurysm not noted. No large vessel occlusion IMPRESSION: No acute vascular abnormality displayed
[2024-12-01 11:09] LABS: PT Prothrombin Time 12.8 SECONDS (10-13.0); PTT, Activated Partial Thromb 39.5 SECONDS (27.2-37.4); Protime INR 1.14
[2024-12-01 11:21] LABS: ALT/SGPT 24 U/L (13-56); AST/SGOT 14 U/L (15-37); Albumin 3.8 g/dL (3.4-5.0); Albumin/Globulin Ratio 1.1 (1.1-1.8); Alkaline Phosphatase 96 U/L (45-117); Anion Gap 7.8 mEq/L (5.0-15.0); BUN Blood Urea Nitrogen 13 mg/dL (7-18); Bilirubin Indirect, Calculated 0.3 mg/dL (0.2-0.8); Globulin 3.5 g/dL (2.3-3.5); Glucose Level 91 mg/dL (74-106); Magnesium 2.2 mg/dL (1.6-2.4); Potassium 3.8 mEq/L (3.5-5.1)
[2024-12-01 11:22] LABS: Troponin High Sensitivity < 3.0 pg/mL (<58.9)
--- NOTE | 2024-12-01 11:37 | EDPHYS ---
Physician Documentation [facility] Name: Crystal England Age: 54 yrs Sex: Female : 1970 Arrival Date: 12/01/2024 Time: 10:26 Bed 14 Private MD: ED Physician Kory Townsend HPI: 12/01 10:39 This 54 yrs old Female presents to ER via Unassigned with complaints of S/S of ms3 Possible Stroke. 10:39 54-year-old female with no past medical history presents to the emergency department ms3 from Dr. Kam's office for dysarthria and altered mental status. Patient states at 10 PM last night she developed a right-sided heaviness and numbness. Patient states this morning she developed a headache and neck pain. Patient states while at Dr. Kam's office she developed dysarthria with difficulty spelling. Patient states her symptoms have since resolved. Patient is complaining of posterior headache that she rates a 10/10 and states pressing on the posterior portion of her head improves her headache.. 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 - Infectious Disease History:: Denies. - Social history:: Smoking status: Patient denies any tobacco usage or history of. ROS: 10:39 Constitutional: Negative for fever, and chills. Cardiovascular: Negative for chest ms3 pain, and palpitations. Respiratory: Negative for shortness of breath, cough, wheezing, and pleuritic chest pain, Abdomen/GI: Negative for abdominal pain, nausea, vomiting, diarrhea, and constipation, MS/Extremity: Negative for injury and deformity, Skin: Negative for injury, rash, and discoloration, 10:39 Neuro: Positive for Dysarthria, Right sided heaviness- resolved, Exam: 10:39 Constitutional: This is a well developed, well nourished patient who is awake, alert, ms3 and in no acute distress. Head/Face: Normocephalic, atraumatic. Cardiovascular: Regular rate and rhythm with a normal S1 and S2. No gallops, murmurs, or rubs. Normal PMI, no JVD. No pulse deficits. Respiratory: Lungs have equal breath sounds bilaterally, clear to auscultation and percussion. No rales, rhonchi or wheezes noted. No increased work of breathing, no retractions or nasal flaring. Abdomen/GI: Soft, non-tender, with normal bowel sounds. No distension or tympany. No guarding or rebound. No evidence of tenderness throughout. Skin: Warm, dry with normal turgor. Normal color with no rashes, no lesions, and no evidence of cellulitis. MS/ Extremity: Pulses equal, no cyanosis. Neurovascular intact. Full, normal range of motion. 10:39 Neuro: Orientation: is normal, to person, place, time \T\ situation. Mentation: is normal, Memory: is normal, Cranial nerves: CN I not tested, CN II- XII are normal as tested, Cerebellar function: is grossly normal, normal finger to nose testing, Motor: is normal, Sensation: is normal, no obvious gross deficits, 10:47 Radiologist reports: Spoke to Dr Oh. CT Head negative ms3 11:57 ECG was reviewed by the Attending Physician. ms3 Vital Signs: 10:30 BP 182 / 94; Pulse 77; Resp 16; Temp 98.2; Pulse Ox 100% on R/A; Weight 90.72 kg; me1 Height 5 ft. 2 in. ; Pain 10/10; 11:00 BP 148 / 80; Pulse 61; Resp 18; Pulse Ox 100% ; me1 11:30 BP 125 / 89; Pulse 51; Resp 16; Pulse Ox 100% ; me1 12:00 BP 139 / 89; Pulse 50; Resp 16; Pulse Ox 98% ; me1 13:00 BP 136 / 83; Pulse 58; Resp 16; Pulse Ox 100% ; me1 10:30 Body Mass Index 36.58 (90.72 kg, 157.48 cm) me1 10:30 Pain Scale: Adult me1 NIH Stroke Scale Scores: 10:30 NIHSS Score: 0 ss 10:36 NIHSS Score: 0 me1 MDM: 10:30 Medical Screening Exam initiated ms3 10:39 Differential diagnosis: CVA, TIA, metabolic disorder. ms3 11:37 TNKase (Tenecteplase) Screening: Contraindications: Patient reports onset of signs and ms3 symptoms of stroke greater than 6 hours ago: Yes. Data reviewed: vital signs, nurses notes, lab test result(s), EKG, radiologic studies, and as a result, I will admit patient. Consideration of Admission/Observation Patient was admitted/placed on observation. Management of patient was discussed with the following: Hospitalist: Dr Kam- Would like admission orders he sent placed. I considered the following discharge prescriptions or medication management in the emergency department Medications were administered in the Emergency Department. See MAR. Independent interpretation of the following test(s) in the Emergency Department EKG: See my EKG interpretation above CT Scan: My interpretation is CT Head without contrast images reviewed by me do not reveal ICH. Counseling: I had a detailed discussion with the patient and/or guardian regarding the historical points, exam findings, and any diagnostic results supporting the discharge/admit diagnosis, lab results, radiology results, the need for further work-up and treatment in the hospital. ED course: Discussed imaging and labs with patient. Patient agrees with plan for observation. Case discussed with Dr. Kam. 12/01 10:39 Order name: Basic Metabolic Panel; Complete Time: 11: ms3 12/01 10:39 Order name: CBC with Diff; Complete Time: : ms3 12/01 10:39 Order name: Hepatic Function; Complete Time: : ms3 12/01 10:39 Order name: High Sensitivity Troponin; Complete Time: 11: ms3 12/01 10:39 Order name: Magnesium; Complete Time: 11: ms3 12/01 10:39 Order name: Protime (+inr); Complete Time: : ms3 12/01 10:39 Order name: Ptt, Activated; Complete Time: : ms3 12/01 11:04 Order name: CREATININE WHOLE BLOOD; Complete Time: : EDMS 12/01 11:20 Order name: Glucose, Ancillary Testing; Complete Time: 11: EDMS 12/01 11:47 Order name: Creatine Phosphokinase EDMS 12/01 11:47 Order name: Creatine Phosphokinase EDNV 12/01 11:47 Order name: Lipid Profile EDMS 12/01 11:47 Order name: Lipid Profile EDMS 12/01 11:56 Order name: Thyroid Stimulating Hormone EDMS 12/01 11:56 Order name: Vitamin B12 Level EDMS 12/01 11:56 Order name: Hemoglobin A1c EDMS 12/01 11:56 Order name: Urine Microalbumin/Creatinine EDMS 12/01 11:56 Order name: Vitamin D, 25 ([place]), TOTAL EDMS 12/01 12:42 Order name: LDL, Direct EDMS 12/01 10:39 Order name: CT Head Angio; Complete Time: 11:17 ms3 12/01 10:39 Order name: CT Neck Angio; Complete Time: 11:17 ms3 12/01 10:39 Order name: CT Stroke Brain w/o Contrast; Complete Time: 11:17 ms3 12/01 11:56 Order name: Brain W/Wo Cont EDMS 12/01 12:11 Order name: RAD EDMS 12/01 11:47 Order name: IRF Screen EDMS 12/01 10:39 Order name: Accucheck; Complete Time: 11:10 ms3 12/01 10:39 Order name: Cardiac monitoring; Complete Time: 11:07 ms3 12/01 10:39 Order name: EKG - Nurse/Tech; Complete Time: 11:07 ms3 12/01 10:39 Order name: IV Saline Lock; Complete Time: 10:44 ms3 12/01 10:39 Order name: Labs collected and sent; Complete Time: 11:07 ms3 12/01 10:39 Order name: NPO; Complete Time: 11:07 ms3 12/01 10:39 Order name: O2 Per Protocol; Complete Time: 11:07 ms3 12/01 10:39 Order name: O2 Sat Monitoring; Complete Time: 11:07 ms3 12/01 10:39 Order name: Stroke Swallow Screen; Complete Time: 11:07 ms3 EC:57 Rate is 57 beats/min. Rhythm is regular. QRS [place] is Normal. [place] interval is normal. QRS ms3 interval is normal. Clinical impression: Sinus bradycardia. Interpreted by me. Reviewed by me. Administered Medications: 11:33 Not Given (bp 148/80, hr 61. Cancel per verbal order from Dr Casey): [id number] mg IV me1 at calculated rate once 12:13 Drug: Ativan IVP 1 mg IVP once Route: IVP; Site: right antecubital; me1 13:20 Follow up: Response: No adverse reaction; Anxiety decreased me1 Disposition Summary: 12/01/24 11:37 Hospitalization Ordered Notes: Hospitalization Status: Observation ms3 Provider: Toribio Kam ms3 Location: Telemetry/MedSurg (observation) ms3 Condition: Stable ms3 Problem: new ms3 Symptoms: are unchanged ms3 Bed/Room Type: Standard ms3 Room Assignment: 212(12/01/24 11:49) bc6 Diagnosis - Transient cerebral ischemic attack, unspecified ms3 - Dysarthria ms3 - Essential (primary) hypertension ms3 Forms: - Medication Reconciliation Form ms3 - SBAR form ms3 - Leadership Thank You Letter ms3 NIH Stroke Scale - NIH Stroke Score Date: 12/01/2024 Time: 10:30 Total Score = 0 10. Dysarthria (speech clarity - read or repeat words) - 0(Normal) 11. Extinction and Inattention (visual/tactile/auditory/spatial/personal) - 0(No abnormality) 1a. Level of Consciousness (LOC) - 0(Alert) 1b. Level of Consciousness (LOC) (Month \T\ Age) - 0(Both) 1c. LOC Commands (Open \T\ Closes Eyes/Attending Radiologist) - 0(Both) 2. Best Gaze (Lateral Gaze Paresis) - 0(Normal) 3. Visual Field Loss - 0(No visual loss) 4. Facial Palsy - 0(Normal) 5a. Left Arm: Motor (10-second hold) - 0(No drift) 5b. Right Arm: Motor (10-second hold) - 0(No drift) 6a. Left Leg: Motor (5-second hold - always test supine) - 0(No drift) 6b. Right Leg: Motor (5-second hold - always test supine) - 0(No drift) 7. Limb Ataxia (finger/nose \T\ heel/emery - test with eyes open) - 0(Absent) 8. Sensory Loss (pinprick arms/legs/face) - 0(Normal) 9. Best Language: Aphasia (description/naming/reading) - 0(No aphasia) Initials: NIH Stroke Scale - NIH Stroke Score Date: 12/01/2024 Time: 10:36 Total Score = 0 10. Dysarthria (speech clarity - read or repeat words) - 0(Normal) 11. Extinction and Inattention (visual/tactile/auditory/spatial/personal) - 0(No abnormality) 1a. Level of Consciousness (LOC) - 0(Alert) 1b. Level of Consciousness (LOC) (Month \T\ Age) - 0(Both) 1c. LOC Commands (Open \T\ Closes Eyes/Attending Radiologist) - 0(Both) 2. Best Gaze (Lateral Gaze Paresis) - 0(Normal) 3. Visual Field Loss - 0(No visual loss) 4. Facial Palsy - 0(Normal) 5a. Left Arm: Motor (10-second hold) - 0(No drift) 5b. Right Arm: Motor (10-second hold) - 0(No drift) 6a. Left Leg: Motor (5-second hold - always test supine) - 0(No drift) 6b. Right Leg: Motor (5-second hold - always test supine) - 0(No drift) 7. Limb Ataxia (finger/nose \T\ heel/emery - test with eyes open) - 0(Absent) 8. Sensory Loss (pinprick arms/legs/face) - 0(Normal) 9. Best Language: Aphasia (description/naming/reading) - 0(No aphasia) Initials: me1 Signatures: Dispatcher [employer] EDMS Rhoda Ross, RN RN ss Kory Townsend DO DO ms3 Renée Herrera bc6 Jessica Hull, POLINA RN me1 Corrections: (The following items were deleted from the chart) 10:39 10:39 BASIC METABOLIC PANEL+C.LAB.BRZ ordered. EDMS EDMS 10:39 10:39 CBC+H.LAB.BRZ ordered. EDMS EDMS 10:39 10:39 HEPATIC FUNCTION+C.LAB.BRZ ordered. EDMS EDMS 10:39 10:39 Troponin High Sensitivity+C.LAB.BRZ ordered. EDMS EDMS 10:39 10:39 MAGNESIUM+C.LAB.BRZ ordered. EDMS EDMS 10:39 10:39 PROTIME (+INR)+COAG.LAB.BRZ ordered. EDMS EDMS 10:39 10:39 PTT, ACTIVATED+COAG.LAB.BRZ ordered. EDMS EDMS 10:39 10:39 Head Angio+CT.RAD.BRZ ordered. EDMS EDMS 10:39 10:39 Neck Angio+CT.RAD.BRZ ordered. EDMS EDMS 10:39 10:39 CT-STROKE BRAIN W/O CONTRAST+CT.RAD.BRZ ordered. EDMS EDMS 10:39 10:39 Chest Single View+RAD.RAD.BRZ ordered. EDMS EDMS 11:49 11:37 ms3 bc6
--- NOTE | 2024-12-01 11:37 | ER ---
Nurse's Notes [facility] Name: Crystal England Age: 54 yrs Sex: Female : 1970 Arrival Date: 12/01/2024 Time: 10:26 Bed 14 Private MD: Diagnosis: Transient cerebral ischemic attack, unspecified;Dysarthria;Essential (primary) hypertension Presentation: 12/01 10:30 Chief complaint: Patient states: R sided heaviness and numbness that began last night ss at 2200, is better this morning. Sent by Dr. Kma for further evaluation and treatment. Coronavirus screen: Client denies travel out of the [place] in the last 14 days. Ebola Screen: Patient denies exposure to infectious person. Patient denies travel to an Ebola-affected area in the 21 days before illness onset. No acute neurological deficit is noted. Pre-hospital glucose is not applicable to this patient. Initial Sepsis Screen: Does the patient meet any 2 criteria? No. Patient's initial sepsis screen is negative. Does the patient have a suspected source of infection? No. Patient's initial sepsis screen is negative. Risk Assessment: Do you want to hurt yourself or someone else? Patient reports no desire to harm self or others. Onset of symptoms was November 30, 2024. 10:30 Method Of Arrival: Wheelchair ss 10:30 Acuity: ISABELLE 2 ss Triage Assessment: 12:30 The onset of the patients symptoms was November 30, 2024 at 22:00. General: Appears in no me1 apparent distress. Neuro: Reports "heavyness" to right side. 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 - Infectious Disease History:: Denies. - Social history:: Smoking status: Patient denies any tobacco usage or history of. Screenin:30 Abuse screen: Denies threats or abuse. Denies injuries from another. Nutritional ss screening: No deficits noted. Tuberculosis screening: Never had TB. VAN Screening: Arm Drift: Patient shows no arm weakness. Patient is VAN negative. Visual Disturbance: No visual disturbance noted. Aphasia: No aphasia noted. Neglect: No neglect noted. 10:55 [facility] ED Fall Risk Assessment (Adult) History of falling in the last 3 months, me1 including since admission No falls in past 3 months (0 pts) Confusion or Disorientation No (0 pts) Intoxicated or Sedated No (0 pts) Impaired Gait No (0 pts) Mobility Assist Device Used No (0 pt) Altered Elimination No (0 pt) Score/Fall Risk Level 0 - 2 = Low Risk Maintained a safe environment, Provided non-skid footwear, Hourly rounding (assess needs \\T\\ fall precautionary measures) done. Assessment: 10:34 Reassessment: Dr. Townsend at bedside for evaluation. ss 10:36 VAN Scoring: Arm Drift: Patients demonstrates NO arm weakness. Patient is VAN Negative. me1 Visual Disturbance: No visual disturbance noted. Aphasia: No aphasia noted. Neglect: No neglect noted. General: Appears in no apparent distress. well groomed, well developed, well nourished, Behavior is calm, cooperative, appropriate for age, Reports R sided heaviness and numbness that began last night at 2200, is better this morning. Sent by Dr. Kam for further evaluation and treatment. Pain: Complains of pain in back of head Pain does not radiate. Pain currently is 7 out of 10 on a pain scale. Quality of pain is described as aching, Pain began gradually, Is continuous. Neuro: Level of Consciousness is awake, alert, obeys commands, Oriented to person, place, time, situation, Appropriate for age Ham Passer are equal bilaterally Moves all extremities. Full function Gait is steady, Speech is normal, Facial symmetry appears normal, Pupils are PERRLA, Intact Reports Right sided "heavyness". No drift, no weakness noted. Reports some dysarthria last night w/Right sided heavyness and numbness that is better this morning. Sensation is intact today.. Cardiovascular: Patient's skin is warm and dry. Respiratory: Airway is patent Respiratory effort is even, unlabored, Respiratory pattern is regular, symmetrical. GI: No signs and/or symptoms were reported involving the gastrointestinal system. : No signs and/or symptoms were reported regarding the genitourinary system. EENT: No signs and/or symptoms were reported regarding the EENT system. Derm: Skin is intact, is healthy with good turgor, Skin is pink, warm \\T\\ dry. Musculoskeletal: Reports Right sided heavyness. 10:38 General: Code stroke called.. me1 10:40 Reassessment: In CT at this time. ss 10:55 Loyal Swallow Protocol Exclusion Criteria: Unable to remain alert for testing: No Brief ky1 Cognitive Screen What is your name? Normal, Where are you right now? Normal, What year is it? Normal. Oral Mechanism Examination Facial Symmetry: Normal, Motion: Normal, Lip Closure: Normal, 3 oz Water Swallow Challenge: Pt able to drink all water without stopping, coughing, choking or throat clearing: Yes Result: PASS MD Notified: Kory Townsend DO. TNKase (Tenecteplase) Screening: Contraindications: Patient reports onset of signs and symptoms of stroke greater than 6 hours ago:. Vital Signs: 10:30 BP 182 / 94; Pulse 77; Resp 16; Temp 98.2; Pulse Ox 100% on R/A; Weight 90.72 kg; me1 Height 5 ft. 2 in. ; Pain 10/10; 11:00 BP 148 / 80; Pulse 61; Resp 18; Pulse Ox 100% ; me1 11:30 BP 125 / 89; Pulse 51; Resp 16; Pulse Ox 100% ; me1 12:00 BP 139 / 89; Pulse 50; Resp 16; Pulse Ox 98% ; me1 13:00 BP 136 / 83; Pulse 58; Resp 16; Pulse Ox 100% ; me1 10:30 Body Mass Index 36.58 (90.72 kg, 157.48 cm) me1 10:30 Pain Scale: Adult me1 NIH Stroke Scale Scores: 10:30 NIHSS Score: 0 ss 10:36 NIHSS Score: 0 me1 ED Course: 10:27 Patient arrived in ED. ss 10:29 Kory Townsend DO is Attending Physician. ms3 10:38 Jessica Hull, RN is Primary Nurse. me1 10:42 Triage completed. ss 10:42 Arm band placed on right wrist. ss 10:44 Inserted saline lock: 20 gauge in right antecubital area, using aseptic technique. ss ,using aseptic technique. Insertion by JAIMEE Roth Blood collected. Flushed with 10 mL NS. 10:54 CT Head Angio In Process Unspecified. EDMS 10:54 CT Neck Angio In Process Unspecified. EDMS 10:54 CT Stroke Brain w/o Contrast In Process Unspecified. EDMS 10:55 Patient has correct armband on for positive identification. Bed in low position. Call me1 light in reach. Side rails up X 1. Provided Education on: POC. Verbalized understanding.. Client placed on continuous cardiac and pulse oximetry monitoring. NIBP monitoring applied. quality assurance monitor final on. Pulse ox on. NIBP on. 10:55 No provider procedures requiring assistance completed. me1 11:07 EKG done, by ED staff, reviewed by Kory Townsend DO. me1 11:36 Toribio Kam MD is Hospitalizing Provider. ms3 12:08 fax confirmed with Erika on 2 [place] floor. bc6 13:18 Patient admitted, IV remains in place. me1 Administered Medications: 11:33 Not Given (bp 148/80, hr 61. Cancel per verbal order from Dr Casey): [id number] mg IV me1 at calculated rate once 12:13 Drug: Ativan IVP 1 mg IVP once Route: IVP; Site: right antecubital; me1 13:20 Follow up: Response: No adverse reaction; Anxiety decreased me1 Medication: 10:55 VIS not applicable for this client. me1 Outcome: 11:37 Decision to Hospitalize by Provider. ms3 13:18 Admitted to Med/surg accompanied by tech, via wheelchair, room 212, with chart, Report me1 called to tubed up, receipt confirmed with Erika 13:18 Condition: stable 13:18 Instructed on the need for admit, 13:19 Patient left the ED. me1 NIH Stroke Scale - NIH Stroke Score Date: 12/01/2024 Time: 10:30 Total Score = 0 10. Dysarthria (speech clarity - read or repeat words) - 0(Normal) 11. Extinction and Inattention (visual/tactile/auditory/spatial/personal) - 0(No abnormality) 1a. Level of Consciousness (LOC) - 0(Alert) 1b. Level of Consciousness (LOC) (Month \\T\\ Age) - 0(Both) 1c. LOC Commands (Open \\T\\ Closes Eyes/Motorcoach Operator) - 0(Both) 2. Best Gaze (Lateral Gaze Paresis) - 0(Normal) 3. Visual Field Loss - 0(No visual loss) 4. Facial Palsy - 0(Normal) 5a. Left Arm: Motor (10-second hold) - 0(No drift) 5b. Right Arm: Motor (10-second hold) - 0(No drift) 6a. Left Leg: Motor (5-second hold - always test supine) - 0(No drift) 6b. Right Leg: Motor (5-second hold - always test supine) - 0(No drift) 7. Limb Ataxia (finger/nose \\T\\ heel/emery - test with eyes open) - 0(Absent) 8. Sensory Loss (pinprick arms/legs/face) - 0(Normal) 9. Best Language: Aphasia (description/naming/reading) - 0(No aphasia) Initials: NIH Stroke Scale - NIH Stroke Score Date: 12/01/2024 Time: 10:36 Total Score = 0 10. Dysarthria (speech clarity - read or repeat words) - 0(Normal) 11. Extinction and Inattention (visual/tactile/auditory/spatial/personal) - 0(No abnormality) 1a. Level of Consciousness (LOC) - 0(Alert) 1b. Level of Consciousness (LOC) (Month \\T\\ Age) - 0(Both) 1c. LOC Commands (Open \\T\\ Closes Eyes/Motorcoach Operator) - 0(Both) 2. Best Gaze (Lateral Gaze Paresis) - 0(Normal) 3. Visual Field Loss - 0(No visual loss) 4. Facial Palsy - 0(Normal) 5a. Left Arm: Motor (10-second hold) - 0(No drift) 5b. Right Arm: Motor (10-second hold) - 0(No drift) 6a. Left Leg: Motor (5-second hold - always test supine) - 0(No drift) 6b. Right Leg: Motor (5-second hold - always test supine) - 0(No drift) 7. Limb Ataxia (finger/nose \\T\\ heel/emery - test with eyes open) - 0(Absent) 8. Sensory Loss (pinprick arms/legs/face) - 0(Normal) 9. Best Language: Aphasia (description/naming/reading) - 0(No aphasia) Initials: me1 Signatures: Dispatcher [employer] Rhoda Gunn, POLINA RN Kory Townsend DO DO ms3 Renée Herrera bc6 Jessica Hull RN RN me1 Corrections: (The following items were deleted from the chart) 11:56 10:30 BP 182 / 94; Pulse 77bpm; Resp 16bpm; Pulse Ox 100% RA; 90.72 kg; Height me1 5 ft. 2 in.; BMI: 36.5; Pain 10, Adult; ss 11:57 10:30 Chief complaint: Patient states: R sided heaviness and numbness that me1 began last night at 2200, is better this morning. Sent by Dr. Kam for further evaluation and treatment ss
[2024-12-01] MEDS ORDERED: POLYETHYL GLY 3350 17 GM/DOSE PO PRN (11:46)
[2024-12-01] MEDS ORDERED: ONDANSETRON 4 MG/2 ML VIAL IV PRN (11:46)
[2024-12-01] MEDS ORDERED: ACETAMINOPHEN 325 MG TABLET PO PRN (11:47)
[2024-12-01] MEDS ORDERED: DIPHENHYDRAMINE 25 MG TAB/CAP PO PRN (11:47)
[2024-12-01] MEDS ORDERED: NA CHLORIDE 0.9% 1,000 ML IV SCH (12:00)
[2024-12-01] MEDS ORDERED: NACHLORIDE 0.45% 1,000 ML IV SCH (12:00)
--- NOTE | 2024-12-01 12:10 | RAD REPORT ---
Procedure: Chest Single View HISTORY: Code stroke COMPARISON: 2019 FINDINGS: The lungs appear clear of acute infiltrate. No significant pleural effusion noted. The heart is normal size. IMPRESSION: No acute abnormality is displayed.
[2024-12-01] MEDS ORDERED: LORazepam 2 MG/ML VIAL ONE (12:11)
[2024-12-01] MEDS ORDERED: LOPERAMIDE HCL 2 MG CAPSULE PO PRN (13:00)
[2024-12-01] MEDS ORDERED: ONDANSETRON 4 MG (ODT) TAB PO PRN (13:00)
[2024-12-01 13:38] VITALS: BMI 36.6
--- NOTE | 2024-12-01 13:38 | RAD REPORT ---
EXAMINATION: MRI BRAIN WITHOUT AND WITH CONTRAST CLINICAL INDICATION: dysarthria TECHNIQUE: Multiplanar multisequence MR images of the brain were obtained without and with intravenou s contrast. Unless otherwise specified, incidental findings do not require dedicated imaging follow-up. COMPARISON: No prior exam. FINDINGS: INTRACRANIAL: There is a small linear 5 mm area of diffusion restriction with diminished ADC map sign al in the left basal ganglia which may be a tiny lacunar infarct. The ventricles are normal in size and morphology. No augmented susceptibility. There is no mass effect or midline shift. No abnormal ex traaxial fluid collection. VASCULATURE: Normal signal voids in the larger intracranial arteries and dural venous sinuses. SINUSES: The paranasal sinuses and mastoid air cells are predominantly clear. BONE: The marrow signal pattern is within normal limits. CONTRAST: No pathologic postcontrast enhancement to indicate tumor or infection. IMPRESSION: Linear 5 mm diffusion restriction with diminished ADC map signal left basal ganglia probably a small lacunar infarct, acute time frame.
[2024-12-01 13:50] VITALS: O2SAT 100
[2024-12-01] MEDS: CLOPIDOGREL 75 MG TABLET PO ONE (16:00)
[2024-12-01] MEDS: ASPIRIN 81 MG CHEWABLE TABLET PO SCH (16:00)
[2024-12-01] MEDS: ROSUVASTATIN 10 MG TAB PO SCH (16:00)
[2024-12-01 16:09] VITALS: BP 124/60; TEMP 97.8
[2024-12-01] MEDS ORDERED: CLOPIDOGREL 75 MG TABLET PO SCH (16:31)
--- NOTE | 2024-12-01 20:51 | CON ---
Reason For Consultation: Consultation was called because of stroke. History Of Present Illness: Ms. England is a 54-year-old patient who does not take medicati on for medical condition. She follows up with Dr. Kam. Developed stroke-like symptoms yesterday e vening time. Symptoms consisted of sudden onset of face, arm, and leg numbness and weakness. She lorenzana d some difficulty moving the arm properly and the right leg independently [facility] at 10:26 on 12/01/2024 and at that time, she was well outside the window for TNKs. So, initially to be admitted directly with into the hospital in the emergency room and went through the code stroke. She had dysarthria and difficulty spelling and difficulty moving the arms and legs per Dr. Kam. Also, she has significant posterior headache rated around 10/10. CT scan of the head sh owed no acute ischemic hemorrhagic change. CT angiogram of the neck showed mild plaque in the common internal and external carotid arteries bilaterally. She has a hypoplastic right vertebral artery. The aortic arch and great vessels demonstrated no significant abnormalities. CT angiogram of the hea d showed no acute vascular abnormalities. Brain MRI done earlier today around 11:54 in the morning i dentified a linear 5 mm diffusion restriction and the most ADC mapping signal in the left basal gangl ia, likely representing a small lacunar infarct that is acute. The patient is now on aspirin 81 mg d aily, she is on Plavix. She had permissive hypertension and high-dose statin to continue. She did h ave Zofran for nausea, cough controlled with guaifenesin, Lovenox for DVT prophylaxis. She received a liter of fluid and some Benadryl for insomnia. Past Medical History: As noted above. Surgeries: Cholecystectomy. Allergies: MORPHINE AND PENICILLIN. Laboratory Studies: Complete blood count with differential is completely normal. White blood cell c ount 6.0, hemoglobin 13.4, platelets 317. INR 1.14. LDL cholesterol elevated 142. Glucose 87. Her liver function studies are unremarkable. Sodium 140, potassium 3.8, chloride 99, carbon dioxide 27, BUN 13, creatinine 0.72, calcium 8.7. Magnesium 2.2. Family History: Noncontributory. Social History: No alcohol, tobacco, or IV drug use. Review of Systems: Aside from mentioned above, she denies any fevers, chills, nausea, vomiting, myalgias, arthralgias, r libia, headache, weight change. No psychiatric issues. Physical Examination: Vital Signs: Blood pressure ranged up to 182 systolic down to 136 and diastolic ranged from 80 to 94 . Pulse ranged from 50 to 77, respiratory rate 16 to 30, temperature 98.2, oxygen saturation 100%. Pain is rated 10/10. General: Ms. England is resting in bed. HEENT: She is normocephalic, atraumatic. Sclerae anicteric. Oropharynx pink and moist. Neck: Supple. Chest: Clear. Heart: Regular. Extremities: Show no clubbing, cyanosis, or edema. Neurologic: Intact in terms of speech. Normal labial, lingual, and guttural sounds. The patient's face is symmetric with equal excursions and smiling. Sensory loss to light touch in the right face _ sensation in right upper and lower extremities compared to left side. She is ambulated wit h gait belt and physical therapist using a walker. Her reflexes are symmetric. Coordination is inta ct. Assessment And Plan: Ms. England is a 54-year-old patient who has a lacunar infarct in her left basa l ganglia producing right-sided symptoms. She has permissive hypertension, dyslipidemia as etiologie s. She should be on aspirin 81 mg daily, Plavix 75 mg daily, folic acid 1 mg daily, high-dose statin . She may have permissive hypertension for the next 3-5 days and lower her blood pressure otherwise after discharge, she should follow up in Dr. Camacho's clinic within the month. BRENDEN/JOSE LUIS Voice ID: [id number] Report ID: [id number]
[2024-12-01] MEDS ORDERED: GUAIFENESIN 600 MG SA TAB PO SCH (21:00)
[2024-12-02] MEDS ORDERED: ENOXAPARIN 40 MG/0.4 ML SQ SCH (09:00)
== END 2024-12-01 17:37 | disposition home or self-care (01) ==
LOC: ER 10:26 → ERHOLD 11:42 → 2ND 12:03
PROVIDERS: ADMIT Internal Medicine; ATTEND Internal Medicine
DX: I63.81 Other cerebral infarction due to occlusion or stenosis of small artery (principal); R41.82 Altered mental status, unspecified; R47.1 Dysarthria and anarthria; Z88.0 Allergy status to penicillin; Z88.5 Allergy status to narcotic agent; I10 Essential (primary) hypertension; E78.5 Hyperlipidemia, unspecified
CPT/HCPCS: 93005; 85025; 80048; 36415; 83721; 83735; 85610; 82565; 82947; 80076; 85730; 84484; 70496; 70498; 70450; 71045; 70553; 96374; 99285; Q9967; A9577; G0378 ×2